=== PATIENT | female | born 1955 | race Caucasian/White ===

== ENCOUNTER 2016-12-08 06:20 | Inpatient (IN) ==
--- NOTE | 2016-12-04 12:17 | Order Completion Report ---
See report scanned to EMR
[2016-12-04 13:10] LABS: Apearance,Urine Slightly Hazy (Clear); Bacteria,Urine Occasional /HPF (Few); Bilirubin,Urine Negative (Negative); Blood, Urine Negative (Negative); Glucose,Urine (UA) Negative (Negative); Hyaline Casts,Urine 1 /LPF (0-3); Ketones,Urine Negative (Negative); Mucus,Urine Occasional /LPF (Occasional); Nitrite,Urine Negative (Negative); Protein,Urine Negative; RBC,Urine 2 /HPF (0-4); Squamous Epithelial Cell,Urine Occasional /HPF (0-10); Urine Color Yellow (Yellow); Urine Specific Gravity 1.015 (1.001-1.035); Urine Urobilinogen < 2.0 EU/DL (0.2-1.0); WBC,Urine 5 /HPF (0-6)
[2016-12-04 13:21] LABS: Basophils % 0.3 % (0.0-0.8); Eosinophils # 0.1 10*3/uL (0.0-0.87); Eosinophils % 1.8 % (0.00-10.9); Hemoglobin 13.7 GM/DL (12.0-16.0); Immature Granulocytes % 0.3 %; Immature Granulocytes Absolute 0.02 #; Lymphocytes # 1.4 10*3/uL (1.4-4.0); Lymphocytes % 20.9 % (21.3-54.2); Mean Corpuscular HGB Conc 36.1 GM/DL (32-36); Mean Corpuscular Hemoglobin 33 PG (27-34); Mean Corpuscular Volume 90.5 FL (87-102); Mean Platelet Volume 10.8 FL (9.6-12.0); Monocytes # 0.4 10*3/uL (0.11-0.8); Monocytes % 6.8 % (1.7-12.7); Neutrophils # 4.6 10*3/uL (1.4-7.4); Neutrophils % 69.9 % (38.7-73.9); Platelet Count 227 T/CUMM (130-400); Red Cell Distribution Width 12.2 % (9.3-17.3); White Blood Count 6.5 T/CUMM (4-12)
[2016-12-04 13:30] LABS: PT Patient Result 10.4 SECS
[2016-12-04 14:01] LABS: Albumin 3.8 G/DL (3.4-5.0); Bilirubin,Total 0.5 MG/DL (0.2-1.0); Calcium 9.4 MG/DL (8.5-10.1); Total Protein 7.1 G/DL (6.4-8.3)
--- NOTE | 2016-12-04 14:18 | XRay Report ---
2 view chest 12/04/2016 12: 27 PM Indication: Preoperative evaluation Comparison: August 24, 2008 Findings: Cardiomediastinal contours are stable. Lungs are clear bilaterally. . No acute osseous abnormalities. Visualized upper abdomen demonstrates no acute pathology. Impression: No acute cardiopulmonary findings PROCEDURE INTERPRETED AT [facility] DEPARTMENT OF RADIOLOGY Final Report Signed by: Jam Smith MD
[~2016-12-08 06:20] MED LIST: SODIUM CHLORIDE 0.9% 50 ML IV ONE; VANCOMYCIN 1,000 MG VIAL ONE; ceFAZolin 1,000 MG VIAL ONE
--- NOTE | 2016-12-08 06:54 | History and Physical Update ---
History and Physical Update - History and Physical H&P was reviewed, the patient examined and there: are no changes in the patients condition since last H&P was completed.
[2016-12-08] MEDS ORDERED: VANCOMYCIN INJ 1,000 MG in SODIUM CHLORIDE 0.9% 250 ML IV ONE (07:00)
[2016-12-08] MEDS ORDERED: DIAZEPAM 5 MG TABLET PO ONE (07:14)
[2016-12-08] MEDS ORDERED: PANTOPRAZOLE 40 MG TABLET PO ONE (07:14)
[2016-12-08] MEDS ORDERED: LACTATED RINGERS 1,000 ML IV SCH (07:30)
[2016-12-08] MEDS ORDERED: TRANEXAMIC ACID 1,000 MG/10 ML VIAL IV ONE (09:58)
[2016-12-08] MEDS: LACTATED RINGERS 1,000 ML IV SCH ×4 (10:17→23:58)
[2016-12-08] MEDS ORDERED: PROPOFOL 200 MG/20 ML VIAL IV ONE (10:17)
[2016-12-08] MEDS ORDERED: LIDOCAINE 1% 5 ML VIAL ONE (10:17)
[2016-12-08] MEDS ORDERED: ONDANSETRON 4 MG/2 ML VIAL ONE (10:17)
[2016-12-08] MEDS ORDERED: diphenhydrAMINE CAP 25 MG CAPSULE PO PRN (10:21)
[2016-12-08] MEDS ORDERED: ONDANSETRON 4 MG/2 ML VIAL IV PRN ×2 (10:21→12:16)
[2016-12-08] MEDS ORDERED: MORPHINE 2 MG/1 ML SYRINGE IV PRN ×2 (10:21)
[2016-12-08] MEDS ORDERED: ZALEPLON 5 MG CAPSULE PO PRN (10:21)
[2016-12-08] MEDS ORDERED: MAGNESIUM HYDROXIDE SUSP 30 ML UDCUP PO PRN (10:21)
[2016-12-08] MEDS ORDERED: oxyCODONE IR 5 MG TABLET PO PRN (10:21)
[2016-12-08] MEDS ORDERED: BACITRACIN OINT 0.9 GM PACK TOP ONE (11:19)
--- NOTE | 2016-12-08 11:45 | Operative Note ---
Date of procedure: 12/08/16 Procedure: DIAGNOSIS: Right knee primary and posttraumatic osteoarthrosis PROCEDURE: Right total knee arthroplasty (cpt #81923) SURGEON: David ANESTHESIA: Spinal converted to general with a postoperative adductor canal block PROCEDURE and FINDINGS: After adequate was induced, the patient's knee was prepped and draped in the usual sterile fashion. The limb was exsanguinated with Esmarch. Tourniquet was inflated to 300 mmHg. A median parapatellar approach was made. Femur was cut using an intramedullary guide and a 4 in 1 cutting jig in 5 degrees of valgus. ACL and menisci were excised. Tibia was cut using intramedullary guide. Patella was cut using freehand technique. Components were trialed. Tibial fin was prepared. Components are cemented in place using Palacos cement and modern cementing techniques. Cement was removed. A 1/8 inch Hemovac drain was placed. The knee was well-balanced and full range of motion with central tracking patella. Deep layers closed with 0-0 Vicryl. Superficial layers were closed with 2-0 and 3-0 Vicryl. Skin was approximated with michael. Bacitracin and a sterile dressing was applied. Patient was transferred to recovery. A postoperative adductor canal block is anticipated. COMPONENTS: The Dex Persona system was used. 9 CR narrow femur, E natural tibia, 10 mm liner, 35 mm patella TOURNIQUET TIME: 45 minutes Surgeon / Physician: Roman Hernandez Jr. Results - Labs CBC & BMP: 12/04/16 12:59 12/04/16 12:59 Discharge Plan - Discharge Medications No Action Magnesium Chloride [Slow-Mag] 71.5 mg PO BID Gluc/Jacoby-MSM#1/C/Rodríguez/[place]/Bor [Osteo Bi-Flex Caplet] 1 each PO BID Aspirin [Ecotrin] 81 mg PO DAILY Ascorbic Acid [Vitamin C] 1,000 mg PO BID [place]-3/Dha/Epa/Fish Oil [[place]-3 Fish Oil EC 1,000 mg] 1 each PO DAILY Spironolactone 25 mg PO DAILY - Follow Up or Referral - Forms/Instructions
[2016-12-08] MEDS ORDERED: ROPIVACAINE 0.5% 30 ML VIAL ONE (11:51)
[2016-12-08] MEDS ORDERED: HYDROmorphone 2 MG/1 ML VIAL ONE (12:03)
[2016-12-08] MEDS ORDERED: HYDROmorphone 2 MG/1 ML VIAL IV PRN (12:16)
--- NOTE | 2016-12-08 12:30 | Anesthesia Post-Op ---
Anesthesia Post OP - Post Ansesthetic Evaluation Patient seen in post op: Yes Resp: within normal limits CV: within normal limits Mental: within normal limits Temp: within normal limits [id number]: within normal limits Nausea and Vomiting: within normal limits Pain: within normal limits
[2016-12-08] MEDS ORDERED: ACETAMINOPHEN 1,000 MG/100 ML VIAL IV ONE (12:34)
[2016-12-08] MEDS ORDERED: SODIUM CHLORIDE 0.9% 100 ML IV ONE (12:34)
[2016-12-08] MEDS ORDERED: fentaNYL 100 MCG/2 ML VIAL ONE (12:34)
[2016-12-08] MEDS ORDERED: SEVOFLURANE 1 UNIT/15 MINUTE INH ONE (12:34)
[2016-12-08] MEDS ORDERED: MIDAZOLAM 2 MG/2 ML VIAL ONE (12:34)
[2016-12-08] MEDS ORDERED: LACTATED RINGERS 1,000 ML IV ONE (12:34)
[2016-12-08] MEDS ORDERED: SODIUM CHLORIDE 0.9% 250 ML IV ONE (12:34)
--- NOTE | 2016-12-08 13:09 | XRay Report ---
Exam: XR knee 2V RT Exam date 12/08/2016 1211 AM Indication: Postop Comparison: No relevant comparisons Findings: Patient is status post right knee arthroplasty. Alignment is anatomic. No evidence of hardware failure. Postoperative changes within the adjacent soft tissues. Impression: Expected postoperative appearance of right knee arthroplasty placement PROCEDURE INTERPRETED AT [facility] DEPARTMENT OF RADIOLOGY Final Report Signed by: Jam Smith MD
[2016-12-08] MEDS: KETOROLAC 30 MG/1 ML VIAL IV SCH ×2 (14:01→21:36)
[2016-12-08] MEDS: ACETAMINOPHEN 500 MG TABLET PO SCH ×2 (14:54→21:36)
--- NOTE | 2016-12-08 16:03 | Orthopedic Progress Note ---
Orthopedics - Subjective Interval history: Comfortable. Sitting in chair. Able to flex and extend her toes and ankles. dressing clean, dry and intact. Continue per protocol. Exam - Constitutional Vitals: Period Temp Pulse Resp BP Sys/Gooden Pulse Ox Last 24 Hr 97.5 F-98 F 43-64 16-55 117-142/73-84 95-100 Results - Labs CBC & BMP: 12/04/16 12:59 12/04/16 12:59
[2016-12-08] MEDS: ceFAZolin 2,000 MG in SODIUM CHLORIDE 0.9% 100 ML IV SCH (18:25)
[2016-12-08] MEDS: MAGNESIUM CHLORIDE 64 MG TABLET PO SCH (21:35)
[2016-12-08] MEDS: DOCUSATE SODIUM 100 MG CAPSULE PO SCH (21:35)
[2016-12-08] MEDS: ASCORBIC ACID 500 MG TABLET PO SCH (21:35)
[2016-12-09] MEDS: FONDAPARINUX 2.5 MG/0.5 ML SYRINGE SUBCUT SCH (03:54)
[2016-12-09] MEDS: ceFAZolin 2,000 MG in SODIUM CHLORIDE 0.9% 100 ML IV SCH (03:54)
[2016-12-09] MEDS: KETOROLAC 30 MG/1 ML VIAL IV SCH ×2 (03:55→09:27)
[2016-12-09] MEDS: ACETAMINOPHEN 500 MG TABLET PO SCH ×2 (03:55→09:26)
[2016-12-09 07:15] LABS: Basophils % 0.1 % (0.0-0.8); Eosinophils # 0.1 10*3/uL (0.0-0.87); Eosinophils % 0.8 % (0.00-10.9); Hematocrit 30.1 VOL% (35.7-47.0); Hemoglobin 10.5 GM/DL (12.0-16.0); Immature Granulocytes % 0.3 %; Immature Granulocytes Absolute 0.02 #; Lymphocytes # 1.2 10*3/uL (1.4-4.0); Lymphocytes % 15.6 % (21.3-54.2); Mean Corpuscular HGB Conc 34.9 GM/DL (32-36); Mean Corpuscular Hemoglobin 32 PG (27-34); Mean Corpuscular Volume 91.5 FL (87-102); Mean Platelet Volume 11.1 FL (9.6-12.0); Monocytes # 0.7 10*3/uL (0.11-0.8); Monocytes % 8.4 % (1.7-12.7); Neutrophils # 5.9 10*3/uL (1.4-7.4); Neutrophils % 74.8 % (38.7-73.9); Platelet Count 163 T/CUMM (130-400); Red Blood Count 3.29 MC/CUMM (3.8-5.5); Red Cell Distribution Width 12.1 % (9.3-17.3); White Blood Count 7.9 T/CUMM (4-12)
[2016-12-09 07:38] LABS: Calcium 8.3 MG/DL (8.5-10.1); Osmolality,Calculated 285.8 MOS/KG (273-304); Potassium 3.8 MMOL/L (3.5-5.1)
--- NOTE | 2016-12-09 08:31 | Orthopedic Progress Note ---
Orthopedics - Subjective Interval history: Comfortable. nv ok. probably home tomorrow or with HH therapy. Exam - Constitutional Vitals: Period Temp Pulse Resp BP Sys/Gooden Pulse Ox Last 24 Hr 97.0 F-98.0 F 43-68 16-55 91-143/54-87 95-100 Results - Labs CBC & BMP: 12/09/16 06:49 12/09/16 06:48
[2016-12-09] MEDS ORDERED: KETOROLAC 30 MG/1 ML VIAL ONE (09:14)
[2016-12-09] MEDS: SPIRONOLACTONE 25 MG TABLET PO SCH (09:28)
[2016-12-09] MEDS: DOCUSATE SODIUM 100 MG CAPSULE PO SCH ×2 (09:29→21:07)
[2016-12-09] MEDS: ASCORBIC ACID 500 MG TABLET PO SCH ×2 (09:30→21:07)
[2016-12-09] MEDS: MAGNESIUM CHLORIDE 64 MG TABLET PO SCH ×2 (09:30→21:07)
--- NOTE | 2016-12-09 10:22 | Pathology Report from [facility] ---
[facility] ACCESSION # : [id number] PATIENT NAME : Luisa Roy ORDERING DR : RACHAEL ESPINAL MD CLINICAL HX: RT knee osteoarthritis POST-OP DX: Same SPECIMEN INFO: RT knee bone & tissue GROSS DESCRIPTION: Received in formalin labeled LUISA ROY is an aggregate of bone, soft tissue and cartilage measuring 13.5 x 7.3 cm. The articular surfaces are focally degenerative with areas of subchondral eburnation seen. Embedded Linux Engineer tissue is submitted in one cassette. DIAGNOSIS FOR LUISA ROY: RIGHT KNEE, TOTAL REPLACEMENT: Fragments of benign cartilage and bone with reactive/degenerative changes c/w osteoarthritis. COLLECTED DATE: 12/08/2016 [facility] REPORT DATE: 12/09/2016 ELECTRONICALLY SIGNED BY: Taya Sagastume M.D. 12/09/2016 - 9:21:15 [facility]
[2016-12-09] MEDS: LACTATED RINGERS 1,000 ML IV SCH ×3 (14:50→21:03)
[2016-12-09] MEDS: CELECOXIB 200 MG CAPSULE PO SCH (14:50)
[2016-12-10] MEDS: FONDAPARINUX 2.5 MG/0.5 ML SYRINGE SUBCUT SCH (03:51)
[2016-12-10] MEDS: LACTATED RINGERS 1,000 ML IV SCH (06:34)
[2016-12-10 07:18] VITALS: BP 143/76
[2016-12-10 07:21] LABS: Basophils % 0.3 % (0.0-0.8); Eosinophils # 0.1 10*3/uL (0.0-0.87); Eosinophils % 1.6 % (0.00-10.9); Hematocrit 28.5 VOL% (35.7-47.0); Hemoglobin 10.1 GM/DL (12.0-16.0); Immature Granulocytes % 0.3 %; Immature Granulocytes Absolute 0.02 #; Lymphocytes # 1.1 10*3/uL (1.4-4.0); Lymphocytes % 14.3 % (21.3-54.2); Mean Corpuscular HGB Conc 35.4 GM/DL (32-36); Mean Corpuscular Hemoglobin 33 PG (27-34); Mean Corpuscular Volume 92.2 FL (87-102); Mean Platelet Volume 11.5 FL (9.6-12.0); Monocytes # 0.6 10*3/uL (0.11-0.8); Monocytes % 8.2 % (1.7-12.7); Neutrophils # 5.6 10*3/uL (1.4-7.4); Neutrophils % 75.3 % (38.7-73.9); Platelet Count 148 T/CUMM (130-400); Red Blood Count 3.09 MC/CUMM (3.8-5.5); Red Cell Distribution Width 12.4 % (9.3-17.3); White Blood Count 7.4 T/CUMM (4-12)
[2016-12-10] MEDS: ASCORBIC ACID 500 MG TABLET PO SCH (08:11)
[2016-12-10] MEDS: MAGNESIUM CHLORIDE 64 MG TABLET PO SCH (08:11)
[2016-12-10] MEDS: SPIRONOLACTONE 25 MG TABLET PO SCH (08:11)
[2016-12-10] MEDS: CELECOXIB 200 MG CAPSULE PO SCH (08:11)
[2016-12-10] MEDS: DOCUSATE SODIUM 100 MG CAPSULE PO SCH (08:11)
--- NOTE | 2016-12-10 09:03 | Discharge Summary ---
Hospital Course - Hospital Course Hospital Course: Luisa Roy was admitted after undergoing an uncomplicated right total knee replacement. She received perioperative DVT and antimicrobial prophylaxis. She received physical therapy. She was discharged home postoperative day #2 in stable condition. She is to be discharged home with home health physical therapy. Exam shows her dressings clean, dry and intact. Her right lower extremity is neurovascularly unchanged. Specialty Discharge - Follow Up or Referrals Follow up with: Roman Hernandez Jr., MD [Physician] - Discharge Plan - Discharge Data Disposition: Home Health Service Condition at Discharge: Stable Discharge Diet: advance to your usual diet Hygiene: may shower Weight Bearing at Discharge: weight bear as tolerated Driving: not until seen by doctor - Discharge Medications Continue Magnesium Chloride [Slow-Mag] 71.5 mg PO BID Gluc/Jacoby-MSM#1/C/Rodríguez/[place]/Bor [Osteo Bi-Flex Caplet] 1 each PO BID Aspirin [Ecotrin] 81 mg PO DAILY Ascorbic Acid [Vitamin C] 1,000 mg PO BID [place]-3/Dha/Epa/Fish Oil [[place]-3 Fish Oil EC 1,000 mg] 1 each PO DAILY Spironolactone 25 mg PO DAILY - Follow Up or Referral Follow Up: Roman Hernandez Jr., MD [Physician] - - Forms/Instructions Additional Discharge Instructions: Daily dry dressing changes. Weightbearing as tolerated. Arrange walker and bedside commode for home use. Wear ARNOLDO hose for 1 month. Discontinue michael and Steri-Strip wound on December 19, 2016. Prescription for [place] 7.5 with 30 tablets was written. Take aspirin 325 mg by mouth daily for 21 days. Resume baby aspirin then. Follow-up appointment in [] . Exam - Constitutional Vitals: Period Temp Pulse Resp BP Sys/Gooden Pulse Ox Last 24 Hr 96.9 F-99.0 F 60-75 17-20 120-157/66-93 95-97 Discharge Results Procedures and tests throughout hospitalization: Pending Orders 12/11/16 04:00 Comp Blood Count Auto Diff IN AM Labs on day of discharge: Labs from last 24 hours 12/10/16 06:17 WBC 7.4 RBC 3.09 L Hgb 10.1 L Hct 28.5 L MCV 92.2 MCH 33 MCHC 35.4 RDW 12.4 Plt Count 148 MPV 11.5 Neut % (Auto) 75.3 H Lymph % (Auto) 14.3 L [place] % (Auto) 8.2 Eos % (Auto) 1.6 Baso % (Auto) 0.3 Neut # (Auto) 5.6 Lymph # (Auto) 1.1 L [place] # (Auto) 0.6 Eos # (Auto) 0.1 Baso # (Auto) 0.0 Immature Gran % 0.3 Nucleated RBC % 0.0 Immature Gran # 0.02 Nucleated RBCs # 0.00 Immature Plt Fraction 0.0 DS: Provider Date of admission: 12/08/16 06:20 Primary care physician: Km Yeung MD Attending physician on admission: Roman Hernandez Jr., Consults: 12/08/16 10:22 Consult to Case Mgmt/Social Srvs [CONS] Routine Reason for Case Mgmt/Social Srvs: Rehab Home Health Equipment Consult Comment: Bedside Commode, CPM, Walker Consult to Occupational Therapy [CONS] Routine Reason for Occupational Therapy: Evaluate and Treat Consult Comment: ADL's Consult to Physical Therapy [CONS] Routine Reason for Physical Therapy: Evaluate and Treat Gait Training Start Therapy: Today Discharging clinician: Roman Hernandez Jr., Expected date of discharge: 12/10/16
== END 2016-12-10 11:45 | disposition home health service (06) | DRG 470 ==
LOC: N.SDSINP 06:20 → N.3E 12:48
PROVIDERS: ADMIT Orthopaedic Surgery; ATTEND Orthopaedic Surgery